=== PATIENT | male | born 1990 | race Two or more races ===

== ENCOUNTER 2021-06-10 18:32 | Emergency (ER) | payer SELFPAY ==
[~2021-06-10] VITALS: Ht 177.8 cm; Wt 74.8 kg
[2021-06-10 20:11] LABS: Basophils # (auto) 0 10 ^3/uL (0-0.2); Basophils % (auto) 0.2 % (0.0-2.0); Eosinophils # (auto) 0.1 10 ^3/uL (0-0.8); Eosinophils % (auto) 1.1 % (0.0-7.0); Hematocrit 44.5 % (41.0-53.0); Hemoglobin 15.4 g/dL (13.5-17.5); Lymphocytes # (auto) 0.6 10 ^3/uL (0.4-5.4); Lymphocytes % (auto) 9.8 % (10.0-50.0); Mean Corpuscular Hemoglobin 28.7 pg (28.0-32.0); Mean Corpuscular Hgb Conc. 34.7 g/dL (32.0-36.0); Mean Corpuscular Volume 82.6 fL (80.0-100.0); Monocytes # (auto) 0.9 10 ^3/uL (0-1.3); Monocytes % (auto) 14.1 % (0.0-12.0); Neutrophils # (auto) 4.8 10 ^3/uL (1.6-8.6); Neutrophils % (auto) 74.8 % (37.0-80.0); Nucleated Red Blood Cells % 0.1 %; Red Blood Cells 5.39 10^6/uL (4.5-5.90); Red Cell Distribution Width 13.9 % (11.8-14.3); White Blood Cell 6.4 10^3/uL (4.4-10.8)
[2021-06-10 20:17] LABS: BUN/Creatinine Ratio 14.1; Calcium 8.5 mg/dL (8.5-10.1); Potassium 3.9 mmol/L (3.5-5.1)
[2021-06-11 00:29] VITALS: BP 125/78
== END 2021-06-11 00:41 | disposition home or self-care (01) ==
LOC: ER 18:32
DX: T58.91XA Toxic effect of carbon monoxide from unspecified source, accidental (unintentional), initial encounter (principal); R42 Dizziness and giddiness; Y92.89 Other specified places as the place of occurrence of the external cause
CPT/HCPCS: 36415; 36600; 71046; 80048; 82805; 85025

== ENCOUNTER 2024-06-08 20:36 | Emergency (ER) | payer MEDICAID, SELFPAY ==
[~2024-06-08] VITALS: Ht 177.8 cm; Wt 77.1 kg
[~2024-06-08 20:36] MED LIST: ONDA-144 PO
[2024-06-08] MEDS ORDERED: ERY05OO OP (23:19)
--- NOTE | 2024-06-08 23:19 | ED.PDOC ---
Eye-HPI HPI Comments 34-YEAR-OLD MALE PRESENTS TO ER WITH COMPLAINTS OF FOREIGN BODY TO RIGHT EYE X2 DAYS. PATIENT REPORTS THAT A "SMALL PIECE OF METAL" FLEW AND WENT INTO HIS RIGHT EYE TWO DAYS AGO. REPORTS THAT HE FOLLOWED UP WITH AN BALL ROLLING MACHINE OPERATOR TODAY AND WAS TOLD THAT THERE IS A "SMALL PIECE OF METAL" IN HIS RIGHT EYE AND WAS REFERRED TO FOLLOW UP WITH A SYSTEMS SECURITY ANALYST BUT STATES THAT HE CONTACTED SYSTEMS SECURITY ANALYST OFFICES HE WAS REFERRED AND NOTES THAT THEY WERE CLOSED SO HE CAME TO ER FOR FURTHER EVALUATION. REPORTS 6/10 PAIN TO RIGHT EYE. PATIENT PRESENTS TO ER AMBULATORY ON ARRIVAL, WITH STEADY GAIT, IN NO DISTRESS AND DENIES ANY WORSENING SYMPTOMS SINCE LAST FOLLOWING UP WITH AN BALL ROLLING MACHINE OPERATOR. DENIES USE OF CONTACTS/GLASSES, VISION CHANGES, SKIN CHANGES, EYE DRAINAGE OR ANY FURTHER SYMPTOMS/COMPLAINTS Chief Complaint: Foreign Body Time Seen by MD: 21:36 Primary Care Provider: UNKNOWN Reviewed Notes: Nurses Notes, Medications, Allergies Allergies: Coded Allergies: NO KNOWN ALLERGIES (Unverified , 12/20/15) Home Meds Active Scripts Erythromycin (Erythromycin) 5 Mg/Gm Oin, 1 MG OP 6XD for 7 Days, #1 OIN 0 Refills Prov:CHELO CARVAJAL 06/08/24 Ondansetron (Zofran) 4 Mg Tab, 4 MG PO Q4HP PRN for 15 Days, #15 TAB Prov:MAGGI MENDOZA MD 11/17/21 Information Source: Patient Mode of Arrival: Ambulatory Past Medical History PAST MEDICAL HISTORY: Denies Surgical History: Denies all surgeries Family History Family History: Unknown Social History Smoker: Cigarettes, Less Than 1 Pack/Day Alcohol: Denies ETOH Use Drugs: Denies Drug Use Lives In: Home, Unknown Constitutional: denies: chills, diaphoresis, fatigue, fever, malaise, sweats, weakness, others EENTM: reports: others ( STATED IN HPI) Respiratory: denies: cough, hemoptysis, orthopnea, SOB at rest, shortness of breath, SOB with excertion, stridor, wheezing, others Cardiovascular: denies: chest pain, dizzy spells, diaphoresis, Dyspnea on exertion, edema, irregular heart beat, left arm pain, lightheadedness, palpitations, PND, syncope, others Gastrointestinal: denies: abdomen distended, abdominal pain, blood streaked bowels, constipated, diarrhea, dysphagia, difficulty swallowing, hematemesis, melena, nausea, poor appetite, poor fluid intake, rectal bleeding, rectal pain, vomiting, others Genitourinary: denies: burning, dysuria, flank pain, frequency, hematuria, incontinence, penile discharge, penile sore, pain, testicle pain, testicle swelling, urgency, others Neurological: denies: dizziness, fainting, headache, left sided numbness, left sided weakness, numbness, paresthesia, pre-existing deficit, right sided numbness, right sided weakness, seizure, speech problems, tingling, tremors, weakness, others Musculoskeletal: denies: back pain, gout, joint pain, joint swelling, muscle pain, muscle stiffness, neck pain, others Integumetry: denies: bruises, change in color, change in hair/nails, dryness, laceration, lesions, lumps, rash, wounds, others Allergic/Immunocompromised: denies: Difficulty Healing, Frequent Infections, H kandice, Itching, others Hematologic/Lymphatic: denies: anemia, blood clots, easy bleeding, easy bruising, swollen glands, others Endocrine: denies: excessive hunger, excessive sweating, excessive thirst, excessive urination, flushing, intolerance to cold, intolerance to heat, unexplained weight gain, unexplained weight loss, others Psychiatric: denies: anxiety, bipolar disorder, depression, hopeless, panic disorder, schizophrenia, sleepless, suicidal, others Physical Exam General Appearance: No Apparent Distress HEENT: PERRL/EOMI, Pharynx Normal, TMs Normal, Other (RIGHT EYE EXAMINATION- SMALL METALLIC FOREIGN BODY NOTED TO CORNEA OF RIGHT EYE. NO DRAINAGE FROM EYE NOTED, NO SKIN CHANGES NOTED. VISUAL ACUITY RIGHT EYE 20/20, VISUAL ACUITY LEFT EYE 20/20, VISUAL ACUITY USING BOTH EYES-20/20) Neck: Full Range of Motion, Non-Tender, Normal Respiratory: Chest Non-Tender, Lungs Clear, No Accessory Muscle Use, No Respiratory Distress, Normal Breath Sounds Cardiovascular: No Murmur, No Gallop, Regular Rate/Rhythm Breast Exam: Deferred Gastrointestinal: NOT DONE Genitalia: Deferred Pelvic: Deferred Rectal: Deferred Extremities: Normal capillary refill, Normal range of motion Neurologic: Alert, No Motor Deficits, Normal Affect, Normal Mood, No Sensory Deficits Cerebellar Function: Normal Reflexes: Normal Skin: Dry, Normal Color, Warm Peripheral Pulses: 2+ Radial (R), 2+ Radial (L), 2+ Brachial (R), 2+ Brachial (L) Lymphatic: No Adenopathy Was a procedure done? Was a procedure done?: No Sedation Sedation?: No EENT DIFF Eye: Globe Rupture, Orbital Cellulits, Periorbital Cellulits X-Ray, Labs, Meds, VS Vital Signs Date Time Temp Pulse Resp B/P (MAP) Pulse Ox O2 Delivery O2 Flow Rate FiO2 06/08/24 21:00 98.8 Current Medications Medications (Trade) Dose Ordered Sig/Ellie Route Start Time Stop Time Status Last Admin Erythromycin 1 applic ONCE ONCE OP 06/08/24 23:15 06/08/24 23:16 DC 06/08/24 23:22 ERYTHROMYCIN OPHTHALMIC OINTMENT ORDERED-PATIENT EDUCATED ON PROPER USE/DOSAGE PATIENT REFUSED WOOD'S LAMP EXAMINATION IN ER AND IN NO DISTRESS PRIOR TO DISCHARGE PATIENT STATES THAT HE IS GOING TO FOLLOW UP WITH OPHTHALMOLOGY TOMORROW ADVISED TO FOLLOW UP WITH PCP AND SYSTEMS SECURITY ANALYST IN 1-2 DAYS PATIENT VERBALIZED UNDERSTANDING AND AGREEABLE WITH CURRENT PLAN OF CARE ADVISED TO RETURN TO ER IMMEDIATELY IF SYMPTOMS WORSEN Time of 1ST Reevaluation: 22:44 Reevaluation 1ST: N/A Patient Education/Counseling: Diagnosis, Treatment, Prognosis, Need For Follow Up Family Education/Counseling: No Family Present Departure 1 Departure Time of Disposition: 23:12 Impression: Primary Impression: Foreign body in eyeball, right Qualified Codes: S05.51XA - Penetrating wound with foreign body of right eyeball, initial encounter Disposition: HOME / SELF CARE / HOMELESS Condition: Stable e-Prescriptions Erythromycin (Erythromycin) 5 Mg/Gm Oin 1 MG OP 6XD for 7 Days, #1 OIN 0 Refills Prov: CHELO CARVAJAL 06/08/24 Discharged With: Friend Critical Care Note Critical Care Time?: No Stability Stability form required: No Heart Score Heart Score: Heart Score Response (Comments) Value History N/A 0 EKG N/A 0 Age N/A 0 Risk Factors N/A 0 Troponin N/A 0 Total 0 CHELO CARVAJAL Jun 08, 2024 23:19
[2024-06-08] MEDS: ERYTHROMY OPTH OINT 5mg/gm 1gm or 3.5gm tube OP ONE (23:22)
== END 2024-06-08 23:34 | disposition home or self-care (01) ==
LOC: ER 20:36
DX: T15.81XA Foreign body in other and multiple parts of external eye, right eye, initial encounter (principal); F17.210 Nicotine dependence, cigarettes, uncomplicated; X58.XXXA Exposure to other specified factors, initial encounter; Y93.89 Activity, other specified; Y92.89 Other specified places as the place of occurrence of the external cause; Y99.8 Other external cause status